=== PATIENT | female | born 1935 ===

== ENCOUNTER 2018-05-10 12:40 | Emergency (ER) | payer OTHER ==
[~2018-05-10] VITALS: Ht 152.4 cm; Wt 70.3 kg
[~2018-05-10 12:40] MED LIST: DILTIAZEM ER120 M1; HYOSCYAMINE0.125 M1 SL; POLY119PG PO; ULTRACET PO; XANAX XR0.5 MG
== END 2018-05-10 19:55 | disposition home or self-care (01) ==
LOC: ER 12:40
DX: K52.89 Other specified noninfective gastroenteritis and colitis (principal)

== ENCOUNTER 2019-03-28 09:18 | Outpatient (CLI) | payer OTHER | END 2019-03-28 17:00 | disposition home or self-care (01) | LOC: MRI 09:18 | DX: S83.001A Unspecified subluxation of right patella, initial encounter (principal); S83.101A Unspecified subluxation of right knee, initial encounter | CPT/HCPCS: 73721 ==